=== PATIENT | male | born 1960 | race Caucasian/White ===

== ENCOUNTER 2017-11-21 07:28 | Emergency (ER) | payer BC ==
[~2017-11-21] VITALS: Ht 182.9 cm; Wt 86.2 kg
[~2017-11-21 07:28] MED LIST: LISINOPRIL-HCT1 EAC1 PO; SIMVASTATIN20 MG PO
== END 2017-11-21 08:33 | disposition left against medical advice (07) ==
LOC: ER 07:28
DX: T42.8X1A Poisoning by antiparkinsonism drugs and other central muscle-tone depressants, accidental (unintentional), initial encounter (principal); I10 Essential (primary) hypertension; Y92.89 Other specified places as the place of occurrence of the external cause